=== PATIENT | female | born 1945 | race Caucasian/White ===

== ENCOUNTER 2023-05-21 00:15 | Emergency (ER) | payer MEDICARE, SELFPAY ==
[2023-05-21 00:17] VITALS: BP 111/57; PULSE 110; RESP 16; TEMP 36.4; O2SAT 99; BMI 27.4
[2023-05-21 01:01] LABS: Absolute Lymphocyte Count 1.36 X10^3/uL (0.83-4.51); Absolute Neutrophil Count 3.4 X10^3/uL (2.0-7.7); Basophil# 0.07 X10^3/uL; Basophil% 1.3 % (0-1); Eosinophil# 0.09 X10^3/uL; Eosinophils% 1.6 % (0-5); Hematocrit 33.9 % (37-47); Hemoglobin 11.5 g/dL (12.0-15.0); Lymphocyte # 1.36 X10^3/ul (0.83-4.51); Lymphocyte % 24.4 % (19-41); Mean Corp Hgb Conc 33.9 g/dL (32-36); Mean Corpuscular Hgb 39.5 pg (27.0-32.0); Mean Corpuscular Volume 116.5 fL (81-99); Monocyte# 0.56 X10^3/uL; NRBC Flagged by Analyzer 0 % (0-5); Neutrophil # 3.41 X10^3/uL (2.7-7.7); Neutrophil % 61.1 % (47-70); Platelet Count 212 K/mm3 (150-450); RBC Distribution Width CV 13.7 % (11.6-14.6); RBC Distribution Width SD 58.3 fl (35.1-43.9); Red Blood Count 2.91 M/mm3 (4.2-5.4); White Blood Count 5.6 K/mm3 (4.4-11.0)
--- NOTE | 2023-05-21 01:09 | EKG12_ITS ---
Test Reason : DYSRHYTHMIA Blood Pressure : / mmHG Vent. Rate : 109 BPM Atrial Rate : 109 BPM P-R Int : 206 ms QRS Dur : 082 ms QT Int : 314 ms P-R-T Axes : 065 050 066 degrees QTc Int : 422 ms Sinus tachycardia Otherwise normal ECG Confirmed by GABRIEL GONZALEZ, ELIZABETH ([id number]), news copy editor SOPHIA TORRES ([id number]) on 05/24/2023 8:45:18 AM Referred By: DYLON Confirmed By:BENJAMIN RIOS MD
[2023-05-21 01:19] LABS: Anion Gap 3 (5-15); BUN 13 mg/dL (7-18); BUN/Creat Ratio 19.7 RATIO (10-20); Calcium,Total 9.3 mg/dL (8.5-10.1); Chloride 111 mmol/L (98-107); Creatinine, Serum 0.66 mg/dL (0.55-1.02); EST Glomerular Filtration Rate 92 mL/min (>60); Est Glom Filt Rate - Afr Amer 112 mL/min (>60); Estimated Creatinine Clearance 41.33 ml/min; Glucose 97 mg/dL (74-106); Potassium 3.7 mmol/L (3.5-5.1); Sodium Level 143 mmol/L (136-145); Thyroid Stim Hormone (TSH) 4.84 uIU/mL (0.358-3.74)
[2023-05-21] MEDS: 0.9% Normal Saline 1,000 ML 999 ML IV (02:01)
[2023-05-21 02:02] VITALS: BP 117/77; PULSE 99; RESP 14; O2SAT 99
--- NOTE | 2023-05-21 02:17 | EX.ED.DYSGE1 ---
HPI History of Present Illness Chief Complaint: Palpitations Informant: patient and family Narrative Narrative: Patient is a 77-year-old female from home who presents with palpitations. She states that over the weekend she was helping a family removed down in [place] and was climbing stairs and exposed to 90 degree weather. She states because of this she is concerned she is dehydrated. She states that a few hours prior to arrival she felt her heart was racing and skipping beats so she checked her heart rate on her blood pressure cuff and it was elevated approximately 180. Family states that they had her perform Valsalva maneuvers and following this patient had improvement of symptoms but heart rate remained elevated and therefore she presents for evaluation. Patient denies any past history of cardiac dysrhythmia and states there is no chest pain or shortness of breath associated with this. She also denies any excessive stimulant use or illicit drug use PFSH PFSH Allergy/AdvReac Type Severity Reaction Status Date / Time No Known Allergies Allergy Verified 05/21/23 00:19 Social History Smoking Status: Never smoker ROS [facility] ED Constitutional Constitutional ED: Denies chills or fever(s) Eyes Eyes: Denies change in vision ENT ENT ED: Denies sore throat Cardiovascular Cardiovascular: Reports palpitations and racing heartbeat; Denies chest pain Respiratory/Chest Respiratory/Chest: Denies cough or dyspnea Gastrointestinal Gastrointestinal: Denies abdominal pain, diarrhea, nausea or vomiting Genitourinary Genitourinary ED: Denies dysuria Musculoskeletal Musculoskeletal: Denies myalgias Integumentary Denies rash Neurologic Neurologic: Denies headache(s) Hematologic/Lymphatic Hematologic/Lymphatic: Denies easy bleeding or easy bruising EXAM Physical Exam Const Vital Signs: 05/21/23 00:17 05/21/23 02:02 05/21/23 03:13 Temperature 97.6 F L Temperature Source Oral Pulse Rate 110 H 99 99 Respiratory Rate 16 14 15 Blood Pressure 111/57 L 117/77 125/71 H Blood Pressure Mean 75 90 Pulse Ox 99 99 99 Oxygen Delivery Method Room Air Room Air Positive well nourished and well developed General Appearance ED: well developed HEENT Reports moist mucous membranes Eyes PERRL and EOMs intact bilaterally General Eye ED: Negative for scleral icterus Neck supple and no JVD Resp normal respiratory effort and clear to auscultation bilaterally Cardio regular rate and regular rhythm Rate: other Other Details: Radial pulses and carotid pulses equal and symmetric GI normal to inspection, nondistended, normoactive bowel sounds, non-tender, non-distended and no masses GI Narrative: No voluntary guarding or rigidity no pulsatile mass or fluid wave Auscultation: normoactive bowel sounds Palpation: soft Extremity normal to inspection Extremity Narrative: No asymmetric edema no pitting edema negative Homans' sign bilaterally Neuro oriented x3 and CN's II-XII intact bilaterally Sensorium / Orientation: alert Psych mental status grossly normal Skin no rashes or lesions noted Skin Narrative: Skin turgor is increased MDM MDM MDM Narrative Medical decision making narrative: Patient presented to the ER to slightly tachycardic but this was sinus in rhythm. With her report of a heartbeat of 180 bpm at home there was concern she developed A-fib versus a flutter versus SVT. Patient denied any chest pain or shortness of breath associated with this and therefore my concern of underlying cardiac event or DVT/PE is low. Secondary to report of palpitations basic blood work was obtained to check for electrolyte disturbance as a possible cause and blood work revealed no clinically significant findings. The patient was given IV hydration and heart rate reduced to just barely below 100. As she does not have chest pain or shortness of breath I do not feel there is need for a D-dimer or CTA. Her history is most consistent with an abnormal cardiac rhythm that broke with Valsalva technique but as there is been no capture of a abnormal cardiac rhythm on packer inspector EKG this is just speculation. However as vitals are stable and laboratory studies revealed no signs of acute kidney injury severe blood loss anemia causing need for transfusion or electrolyte derangement she can be discharged and follow-up on an outpatient basis History & Record Review Discussion w/independent historian: Patient and Family Lab Data Attestation: I reviewed the patient's lab results. Labs: Laboratory Results - last 24 hr 05/21/23 00:45 WBC 5.6 RBC 2.91 L Hgb 11.5 L Hct 33.9 L MCV 116.5 H MCH 39.5 H MCHC 33.9 RDW Std Deviation 58.3 H RDW Coeff of Carrol 13.7 Plt Count 212 MPV 10.0 Immature Gran % (Auto) 1.600 H Neut % (Auto) 61.1 Lymph % (Auto) 24.4 [place] % (Auto) 10.0 Eos % (Auto) 1.6 Baso % (Auto) 1.3 H Absolute Neuts (auto) 3.4 Absolute Lymphs (auto) 1.36 Nucleated RBC % 0 Sodium 143 Potassium 3.7 Chloride 111 H Carbon Dioxide 29.0 Anion Gap 3 L BUN 13 Creatinine 0.66 Estim Creat Clear Calc 41.33 Est GFR (MDRD) Af Amer 112 Est GFR (MDRD) Non-Af 92 BUN/Creatinine Ratio 19.7 Glucose 97 Calcium 9.3 Magnesium 2.0 TSH 4.84 H Discharge Plan Triage Chief Complaint: Palpitations ED Provider: Benny Carlton Dx/Rx/DC Orders Clinical Impression: Palpitations, Mild dehydration Instructions: ED Palpitations Primary Care Provider: Lynette Segovia Referrals: Lynette Segovia MD [Primary Care Provider] - Activity Restrictions/Additional Instructions: Please talk to your family doctor about a Holter monitor to wear at home to further monitor any abnormal heart rhythm. If you develop chest pain shortness of breath or your heart rate increases but will not resolve/improve spontaneously please return for repeat evaluation Disposition Disposition: Home, Self Care Discharge Date/Time: 05/21/23 03:14
[2023-05-21 03:13] VITALS: BP 125/71; PULSE 99; RESP 15; O2SAT 99
== END 2023-05-21 03:14 | disposition home or self-care (01) ==
PROVIDERS: Emergency Provider Emergency Medicine; PCP Family Medicine; Visit Provider Emergency Medicine
DX: E86.0 Dehydration (principal); R00.2 Palpitations
CPT/HCPCS: 80048; 83735; 84443; 85025; 93005; 96360; 99282; A4216